=== PATIENT | female | born 1975 ===

== ENCOUNTER 2025-04-21 13:11 | Day surgery (SDC) | payer OTHER ==
[~2025-04-21] VITALS: Ht 165.1 cm; Wt 60.4 kg
[2025-04-21] MEDS ORDERED: FURO40 (13:31)
[2025-04-21] MEDS ORDERED: ERGO50000 (13:31)
[2025-04-21] MEDS ORDERED: GABA100 (13:31)
[2025-04-21] MEDS ORDERED: CORGARD80 MG (13:32)
[2025-04-21] MEDS ORDERED: HYDPAM50 (13:32)
[2025-04-21] MEDS ORDERED: LACT10SY (13:32)
[2025-04-21] MEDS ORDERED: PANT20 (13:32)
[2025-04-21] MEDS ORDERED: RIFA550T2 (13:32)
[2025-04-21] MEDS ORDERED: ALDACTONE100 MG (13:33)
[2025-04-21] MEDS ORDERED: B-COMPLEX1 EACH (13:33)
[2025-04-21] MEDS ORDERED: Lidocaine HCl 4% 5 ML SDA ONE (14:08)
[2025-04-21] MEDS ORDERED: Midazolam HCL 1 MG/ML 5MLVIAL ONE (14:14)
--- NOTE | 2025-04-21 14:16 | NUR ---
04/21/25 1416 SONIA CONTRERAS ORDER PER DR BOSWELL FOR 4% LIDO GARGLE PRE PROCEDURE
== END 2025-04-21 15:32 | disposition home or self-care (01) ==
LOC: ORSCSDS 13:11
PROVIDERS: Specialist
PROC: 0DJD8ZZ Inspection of Lower Intestinal Tract, Via Natural or Artificial Opening Endoscopic (ICD-10-PCS; principal; 2025-04-21 14:00)
PROC: 0DB68ZX Excision of Stomach, Via Natural or Artificial Opening Endoscopic, Diagnostic (ICD-10-PCS; principal; 2025-04-21 14:00)
DX: Z12.11 Encounter for screening for malignant neoplasm of colon (principal); K74.60 Unspecified cirrhosis of liver; K76.6 Portal hypertension; R56.9 Unspecified convulsions; Z79.899 Other long term (current) drug therapy
CPT/HCPCS: 88305; 88341; 88342; J2003; J2250; J2704; J7120

== ENCOUNTER 2025-09-08 09:12 | Emergency (ER) | payer OTHER ==
[~2025-09-08] VITALS: Ht 167.6 cm; Wt 57.1 kg
[~2025-09-08 09:12] MED LIST: ALDACTONE100 MG; B-COMPLEX1 EACH; CORGARD80 MG; ERGO50000; FURO40; GABA100; HYDPAM50; LACT10SY; PANT20; RIFA550T2
[2025-09-08 10:29] LABS: Alanine Aminotransfer (ALT/SGP 27 U/L (12-78); Albumin, Blood 3.7 g/dL (3.4-5.0); Albumin/Globulin Ratio 1.2 (0.8-1.8); Anion Gap 9 mmol/L (3-11); Aspartate Aminotrans (AST/SGOT 37 U/L (12-37); Bilirubin, Total 2.5 mg/dL (0.1-1.0); Blood Urea Nitrogen 7 mg/dL (8-24); CO2, Blood 23 mmol/L (21-32); Calcium, Blood 9.0 mg/dL (8.5-10.1); Chloride, Blood 111 mmol/L (98-108); Creatinine, Blood 0.59 mg/dL (0.40-1.00); Ethanol (Alcohol), Blood, Med <3 mg/dL; Globulin, Blood 3.2 g/dL (2.2-4.0); Glucose, Blood 110 mg/dL (70-99); Magnesium, Blood 1.5 mg/dL (1.6-2.4); Potassium, Blood 3.8 mmol/L (3.5-5.5); Sodium, Blood 139 mmol/L (136-145); Total Protein, Blood 6.9 g/dL (6.4-8.2)
[2025-09-08 10:33] LABS: BASOPHILS ABSOLUTE AUTO 0.02 K/mm3 (0.00-0.23); BASOPHILS PERCENT AUTO 1 % (0-2); EOSINOPHILS ABSOLUTE AUTO 0.06 K/mm3 (0.00-0.68); EOSINOPHILS PERCENT AUTO 3 % (0-6); Hematocrit 34.0 % (33.0-51.0); Hemoglobin 12.0 g/dL (11.5-16.0); IMMATURE GRAN ABSOLUTE AUTO 0.00 K/mm3 (0.00-0.10); IMMATURE GRAN PERCENT AUTO 0 % (0-1); LYMPHOCYTES ABSOLUTE AUTO 0.94 K/mm3 (0.84-5.20); LYMPHOCYTES PERCENT AUTO 41 % (21-46); MONOCYTES ABSOLUTE AUTO 0.17 K/mm3 (0.16-1.47); MONOCYTES PERCENT AUTO 7 % (4-13); Mean Corpuscular HGB Conc 35.3 g/dL (31.5-36.5); Mean Corpuscular Volume 91 fL (80-100); NEUTROPHILS ABSOLUTE AUTO 1.10 K/mm3 (1.96-9.15); NEUTROPHILS PERCENT AUTO 48 % (41-73); NRBC ABSOLUTE 0.00 K/mm3 (0.00-0.02); NRBC Auto 0.0 /100 WBC (0.0-0.2); Platelet Count 54 K/mm3 (150-400); RDW Coefficient Variation 14.9 % (11.7-14.2); RDW Standard Deviation 50.1 fL (35.1-46.3)
[2025-09-08] MEDS ORDERED: BACLOFEN10 M4 PO (10:38)
[2025-09-08] MEDS ORDERED: Keppra250 MG (10:38)
[2025-09-08] MEDS ORDERED: IRON EC324 MG PO (10:39)
[2025-09-08 10:59] LABS: Source, Urine Straight Cath
[2025-09-08] MEDS ORDERED: Magnesium Sulf 2 GM/Water 50ML 50 ML IV ONE (11:00)
[2025-09-08] MEDS ORDERED: Prochlorperazine Edisylate 10 mg Vial IV ONE (11:00)
[2025-09-08 11:03] LABS: Prothrombin Time Results 13.3 Sec (9.7-11.5)
[2025-09-08 11:06] LABS: Bilirubin, Urine Neg (Neg); Color, Urine Yellow (P-Yellow); Glucose Qualitative, Urine Neg (Neg); Ketones, Urine Neg (Neg); Leukocyte Esterase, Urine Neg (Neg); Protein, Urine 1+ (Neg); Specific Gravity, Urine 1.010 (1.003-1.022); Urobilinogen, Urine 2+ (Normal)
[2025-09-08 11:19] LABS: U Amphetamine Screen Not Detected; U Barbiturate Screen Not Detected; U Benzodiazapine Screen Not Detected; U Buprenorphine Screen Not Detected; U Cannabinoids Screen DETECTED; U Cocaine Screen Not Detected; U Methadone Screen Not Detected; U Methamphetamine Screen Not Detected; U Opiates Screen Not Detected; U Oxycodone Screen Not Detected; U Phencyclidine Screen Not Detected
== END 2025-09-08 12:00 | disposition home or self-care (01) ==
LOC: ER 09:12
PROVIDERS: Emergency Medicine
DX: K76.82 Hepatic encephalopathy (principal); E83.42 Hypomagnesemia; Z79.899 Other long term (current) drug therapy
CPT/HCPCS: 70450; 80053; 80320; 82140; 83690; 83735; 85025; 85610; 93005; 93010; 96365; 96367; 96375; 99285-25; J0780; J1953; J3475